=== PATIENT | male | born 1955 ===

== ENCOUNTER → 2021-11-13 | Day surgery (SDC) | payer OTHER ==
--- NOTE | 2021-11-06 09:09 | NUR ---
ATTEMPTED TO INSTRUCT PATIENT TO TAKE OMEPRAZOLE AND SYNTHROID THE MORNING OF PROCEDURE. PATIENT STATED HE WOULD TAKE ALL OF HIS MEDS WHEN HE GOT HOME POST PROCEDURE
[~2021-11-13] VITALS: Ht 170.2 cm; Wt 90.7 kg
[~2021-11-13] MED LIST: DEPO-TESTO200 MG/1 M IJ; LOVASTATIN20 MG PO; OMEPRAZOLE 20MG20 MG PO; PREDNISONE5 MG PO; PROSTATE THERA1 EACH PO; SYNTHROID88 MCG PO
== END | disposition home or self-care (01) ==
LOC: FAS 10-23 10:15
DX: Z12.11 Encounter for screening for malignant neoplasm of colon (principal); D12.5 Benign neoplasm of sigmoid colon; K57.30 Diverticulosis of large intestine without perforation or abscess without bleeding; N40.0 Benign prostatic hyperplasia without lower urinary tract symptoms; F17.200 Nicotine dependence, unspecified, uncomplicated; E78.00 Pure hypercholesterolemia, unspecified; M19.90 Unspecified osteoarthritis, unspecified site; E66.9 Obesity, unspecified; Z79.899 Other long term (current) drug therapy; Z68.33 Body mass index [BMI] 33.0-33.9, adult; Z82.49 Family history of ischemic heart disease and other diseases of the circulatory system
CPT/HCPCS: J2704; J7120